=== PATIENT | female | born 1995 ===

== ENCOUNTER 2017-05-18 15:45 | Emergency (ER) | payer OTHER ==
[2017-05-18 15:49] VITALS: BP 132/80; PULSE 102; RESP 20; TEMP 100; O2SAT 100
--- NOTE | 2017-05-18 16:13 | C.PDOC ---
History Of Present Illness 21 y/o female presents to the ER complaining of a subjective fever and mild malaise which began yesterday. Patient states that she also has generalized rash which began today. Patient states that the rash is very pruritic. Patient denies having runny nose, cough, nausea, vomiting, and diarrhea. Time Seen by Provider: 05/18/17 16:00 Chief Complaint (Nursing): Allergic Reaction History Per: Patient History/Exam Limitations: no limitations Onset/Duration Of Symptoms: Days Current Symptoms Are (Timing): Still Present Severity: Moderate Past Medical History Reviewed: Historical Data, Nursing Documentation, Vital Signs Vital Signs: Last Vital Signs Temp 100 F H 05/18/17 15:46 Pulse 102 H 05/18/17 15:46 Resp 20 05/18/17 15:46 BP 132/80 05/18/17 15:46 Pulse Ox 100 05/18/17 20:08 - Medical History PMH: No Chronic Diseases Surgical History: No Surg Hx Family History: States: No Known Family Hx - Social History Hx Alcohol Use: No Hx Substance Use: No - Immunization History Hx Tetanus Toxoid Vaccination: No Hx Influenza Vaccination: No Hx Pneumococcal Vaccination: No Review Of Systems Except As Marked, All Systems Reviewed And Found Negative. Constitutional: Positive for: Fever, Malaise. Negative for: Chills ENT: Negative for: Nose Discharge Respiratory: Negative for: Cough Gastrointestinal: Negative for: Nausea, Vomiting, Diarrhea Skin: Positive for: Rash (generalized rash) Physical Exam - Physical Exam Appears: Non-toxic, No Acute Distress, Other (awake, alert, cooperative) Skin: Warm, Dry, Other (vesicular lesions to face, scalp, back, and abdomen, some of the lesions are coalesced together, the lesions appear to be in different stages of healing) Head: Atraumatic, Normacephalic Eye(s): bilateral: Normal Inspection Ear(s): Bilateral: Normal Nose: Normal Oral Mucosa: Moist Throat: Normal, No Erythema, No Exudate Neck: Supple Chest: Symmetrical Cardiovascular: Rhythm Regular Respiratory: Normal Breath Sounds, No Accessory Muscle Use, No Rales, No Rhonchi , No Wheezing Gastrointestinal/Abdominal: Normal Exam, Soft, No Tenderness Neurological/Psych: Oriented x3, Normal Speech, Normal Motor, Normal Sensation ED Course And Treatment O2 Sat by Pulse Oximetry: 100 (RA) Pulse Ox Interpretation: Normal Medical Decision Making Medical Decision Making: Progress: Patient has been diagnosed with chicken pox. Infection control was contacted. Infection Control advised that the patient quarantine herself for 21 days. Patient has been informed that she has chicken pox and has been discharged. Disposition Counseled Patient/Family Regarding: Diagnosis, Need For Followup - Disposition Disposition: HOME/ ROUTINE Disposition Time: 16:11 Condition: STABLE Instructions: Chickenpox Forms: Gen Discharge Inst [place], [employer] [facility] ([place]), Work Excuse - POA Present On Arrival: None - Clinical Impression Clinical Impression: Chicken pox - Scribe Statement The provider has reviewed the documentation as recorded by the Joshua Chavez Provider Attestation: All medical record entries made by the Estuardoibe were at my direction and personally dictated by me. I have reviewed the chart and agree that the record accurately reflects my personal performance of the history, physical exam, medical decision making, and the department course for this patient. I have also personally directed, reviewed, and agree with the discharge instructions and disposition.
== END 2017-05-18 16:25 | disposition home or self-care (01) ==
LOC: C.ER 15:45
DX: B01.9 Varicella without complication (principal)